=== PATIENT | female | born 2000 | race Caucasian/White ===

== ENCOUNTER 2022-05-21 07:00 | Inpatient (IN) | payer SELFPAY, OTHER ==
[2022-05-21] VITALS (35 sets, daily range): BP systolic 125–156; BP diastolic 76–100; PULSE 79–122; RESP 16–18; TEMP 36.3–37.1; O2SAT 84–100; BMI 30.5
[2022-05-21] MEDS: Lactated Ringers 1,000 ML 200 ML IV ×3 (08:00→14:32)
--- NOTE | 2022-05-21 08:10 | HP.PCM.OB_ITS ---
HPI - General General Date of Admission: 05/21/22 HPI Narrative JENNI PETERS, is a 21 F who presents at 40+4 based on LMP from [facility] following arrest of dilation x28 hours prior to admission. no ultrasounds in . did have mild elevated BPs during visits, per automated weaver no proteinuria with negative CMP. started paulino on saturday, has been 6cm since saturday SROM around midnight with clear fluid. Maternal Data Information Final KRYSTAL: 05/17/22 Final KRYSTAL Source: LMP PFSH PFSH Allergy/AdvReac Type Severity Reaction Status Date / Time Penicillins Allergy Severe hives, Verified 05/21/22 08:49 swelling Social History Smoking Status: Never smoker History Elective abortions Hx Para 0 Spontaneous abortions Hx # Term Pregnancies Ectopic pregnancies Hx # Pregnancies Multiple births # of living children NST FHR Rate Baby A Baseline: 125 Variability:: Moderate Accelerations:: 15 x 15 Decelerations:: None NST Reactive:: Yes FHR Category:: Category I Uterine Activity:: q2-3 minutes, mod to palp ROS Cardiovascular Cardiovascular: Denies abdominal pain, chest pain, diaphoresis or dyspnea Respiratory/Chest Respiratory/Chest: Denies change in mental status, chest congestion, chest tightness, cough, shortness of breath at rest, shortness of breath with exertion, breast mass, breast pain, breast skin changes, breast swelling, change in breast shape or nipple discharge Genitourinary Genitourinary: Reports change in urinary stream Musculoskeletal Musculoskeletal: Reports none Integumentary Integumentary: Reports none Neurologic Neurologic: Reports none Psychiatric Psychiatric: Reports none Endocrine Endocrinology: Reports none Hematologic/Lymphatic Hematologic/Lymphatic: Reports none Allergic/Immunologic Allergic/Immunologic: Reports none Vital Signs Vital Signs Vital Signs: 05/21/22 07:38 05/21/22 07:38 05/21/22 07:37 Temperature 97.8 F Temperature Source Pulse Rate 111 H Blood Pressure 141/98 H BP Systolic 141 BP Diastolic 98 Pulse Ox 05/21/22 08:47 05/21/22 08:47 05/21/22 08:46 Temperature Temperature Source Pulse Rate 102 H Blood Pressure 156/92 H BP Systolic 156 BP Diastolic 92 Pulse Ox 98 05/21/22 08:51 05/21/22 08:51 05/21/22 08:56 Temperature Temperature Source Pulse Rate 96 112 H Blood Pressure BP Systolic BP Diastolic Pulse Ox 98 05/21/22 08:56 05/21/22 09:01 05/21/22 09:01 Temperature Temperature Source Pulse Rate 106 H Blood Pressure 126/77 H BP Systolic 126 BP Diastolic 77 Pulse Ox 99 05/21/22 09:01 05/21/22 09:06 05/21/22 09:06 Temperature Temperature Source Pulse Rate 92 Blood Pressure BP Systolic BP Diastolic Pulse Ox 97 97 05/21/22 09:11 05/21/22 09:11 05/21/22 09:16 Temperature Temperature Source Pulse Rate 94 79 Blood Pressure BP Systolic BP Diastolic Pulse Ox 98 05/21/22 09:16 05/21/22 09:09 05/21/22 09:09 Temperature 97.3 F L Temperature Source Temporal Pulse Rate Blood Pressure BP Systolic BP Diastolic Pulse Ox 97 05/21/22 09:48 05/21/22 09:48 05/21/22 10:34 Temperature Temperature Source Pulse Rate 81 Blood Pressure 128/76 H 125/78 H BP Systolic 128 125 BP Diastolic 76 78 Pulse Ox 05/21/22 10:34 Temperature Temperature Source Pulse Rate 79 Blood Pressure BP Systolic BP Diastolic Pulse Ox Weight Weight: 172 lb 6 oz Body Mass Index (BMI) 30.5 Physical Exam Const alert, oriented x3 and no apparent distress General Appearance: cooperative, comfortable and well kempt Orientation / Consciousness: awake and oriented to person Exam Limitations: no limitations HEENT normocephalic Neck full ROM Chest inspection of chest normal Resp normal respiratory effort, normal air movement and no retractions Effort and Inspection: able to speak in complete sentences and symmetric chest movement Cardio regular rate Peripheral Pulses: pulses 2+ throughout GI normal to inspection, nondistended, normoactive bowel sounds Inspection: gravid no CVA tenderness and appearance of the vagina normal External Female Exam: normal appearance of the urethra; Negative for external lesion OB / External & Speculum: external exam normal Manual OB Exam: estimated gestational size appropriate and presentation cephalic Uterus Palpation: Negative for uterus tender Extremity normal to inspection Skin no rashes or lesions noted Neuro deep tendon reflexes 2+ bilaterally and gait normal Motor Exam: strength 5/5 throughout and clonus absent Psych Activity / Motor Behavior: appropriate eye contact Speech: normal speech Labs Labs Labs: Blood Type A POSITIVE Antibody Screen NEGATIVE Hct 36.3 % (37-47) L Hgb 12.6 g/dL (12.0-15.0) Syphilis Total Ab Non-reactive Rubella IgG Antibody Non-Reactive (Nonreactive) Hep Bs Antigen Non-Reactive (Nonreactive) HIV 1&2 Antibody Non-Reactive (Nonreactive) Group B Strep DNA POSITIVE (Negative) H Assessment & Plan (1) Labor abnormality, antepartum: COMMENT: SROMx6 hours arrest of dilation x28 hours plan epidural and pitocin augmentation PLAN: admission to routine orders pitocin per protocol epidural for comfort Dr. Arauz updated on POC, plan for internal monitors following epidural placement. agrees with co-management midwifery care for limited care
[2022-05-21] MEDS: LACTATED RINGERS 500 ML 999 ML IV (08:15)
[2022-05-21 08:21] LABS: Absolute Lymphocyte Count 0.83 X10^3/uL (0.83-4.51); Absolute Neutrophil Count 19.1 X10^3/uL (2.0-7.7); Basophil# 0.02 X10^3/uL; Basophil% 0.1 % (0-1); Hematocrit 36.3 % (37-47); Hemoglobin 12.6 g/dL (12.0-15.0); Lymphocyte # 0.83 X10^3/ul (0.83-4.51); Mean Corp Hgb Conc 34.7 g/dL (32-36); Mean Corpuscular Hgb 31.7 pg (27.0-32.0); Mean Corpuscular Volume 91.2 fL (81-99); Mean Platelet Vol. 10.1 fl (6.2-12.0); Monocyte# 0.62 X10^3/uL; NRBC Flagged by Analyzer 0 % (0-5); Neutrophil # 19.12 X10^3/uL (2.7-7.7); Neutrophil % 92.1 % (47-70); Platelet Count 258 K/mm3 (150-450); RBC Distribution Width CV 16.2 % (11.6-14.6); RBC Distribution Width SD 53.7 fl (35.1-43.9); Red Blood Count 3.98 M/mm3 (4.2-5.4); White Blood Count 20.8 K/mm3 (4.4-11.0)
[2022-05-21] MEDS: fentaNYL-bupivacaine (epidural) 100 ML BAG EPIDURAL ×2 (08:57→13:35)
[2022-05-21 09:01] LABS: Rubella IgG Non-Reactive (Nonreactive); Syphilis Antibodies Non-reactive
[2022-05-21 09:22] LABS: HIV - WCH Non-Reactive (Nonreactive); Hepatitis B Surface Antigen Non-Reactive (Nonreactive); Hepatitis C Antibody Non-Reactive (Nonreactive)
[2022-05-21] MEDS: Oxytocin 15 Units/NS 250ml 15 UNITS/250 ML IV.SOLN 2 UNITS IV (09:47)
[2022-05-21 09:54] LABS: Group B Strep DNA By PCR POSITIVE (Negative); Probe Check PASS
--- NOTE | 2022-05-21 11:00 | PN.OBGYN_ITS ---
Subjective Subjective comfortable with epidural Objective Data Objective Data Vital Signs: Vital Signs Temp Pulse BP Pulse Ox 97.3 F L 79 125/78 H 97 05/21/22 09:09 05/21/22 10:34 05/21/22 10:34 05/21/22 09:16 Weight: 172 lb 6 oz Body Mass Index (BMI) 30.5 Intake & Output: Intake and Output for Last 24 Hours 05/19/22 05/20/22 05/21/22 23:59 23:59 23:59 Intake Total 1098.27 / 1098.27 Output Total 1000 / 1000 Balance 98.27 / 98.27 Lab / Micro Data Result Diagrams: 05/21/22 08:00 Labs: Laboratory Results - last 24 hr 05/21/22 07:50: Group B Strep DNA POSITIVE H, Specimen Comment Not Reportable 05/21/22 08:00: WBC 20.8 H, RBC 3.98 L, Hgb 12.6, Hct 36.3 L, MCV 91.2, MCH 31.7, MCHC 34.7, RDW Std Deviation 53.7 H, RDW Coeff of Howard 16.2 H, Plt Count 258, MPV 10.1, Immature Gran % (Auto) 0.800, Neut % (Auto) 92.1 H, Lymph % (Auto) 4.0 L, [place] % (Auto) 3.0, Eos % (Auto) 0.0, Baso % (Auto) 0.1, Absolute Neuts (auto) 19.1 H, Absolute Lymphs (auto) 0.83, Nucleated RBC % 0 05/21/22 08:00: Blood Type A POSITIVE, Antibody Screen NEGATIVE 05/21/22 08:00: Syphilis Total Ab Non-reactive, Rubella IgG Antibody Non- Reactive 05/21/22 08:00: Hep Bs Antigen Non-Reactive, Hepatitis C Antibody Non-Reactive, HIV 1&2 Antibody Non-Reactive NST FHR Rate Baby A Baseline: 120 Variability:: Moderate Accelerations:: 15 x 15 Decelerations:: None NST Reactive:: Yes FHR Category:: Category I Uterine Activity:: q2-3 Assessment & Plan (1) Labor abnormality, antepartum: COMMENT: SROMx6 hours arrest of dilation x28 hours plan epidural and pitocin augmentation PLAN: pt fully dilated on pitocin 4mu with rectal pressure start second stage anticipate maternal and status reassuring
[2022-05-21] MEDS: Cefazolin 2 GM in 0.9% Normal Saline 100 ML IV (11:44)
[2022-05-21] MEDS: Mag Hydrox/Al Hydrox/Simeth 30 ML UDC PO (15:14)
[2022-05-21] MEDS: Oxytocin 15 Units/NS 250ml 15 UNITS/250 ML IV.SOLN 83 UNITS IV (16:16)
[2022-05-21] MEDS: Oxytocin 10 UNITS/ML Vial IM (16:20)
--- NOTE | 2022-05-21 16:41 | OP.PCM_ITS ---
Assessment & Plan (1) Labor abnormality, antepartum: COMMENT: SROMx6 hours arrest of dilation x28 hours plan epidural and pitocin augmentation (2) Arrest of descent, delivered, current hospitalization: (3) Vacuum-assisted vaginal delivery: COMMENT: 4 1/2 hr pushing maternal exhaustion, SM [facility] tra herberCherelle Hernandez Vaginal Delivery Operative Information Date of Procedure: 05/21/22 Pre-Operative Diagnosis: IAL arrest of descent after 4-1/2 hours of pushing maternal exhaustion Post-Operative Diagnosis: same Type of Anesthesia: Epidural Special Medications: none Estimated Blood Loss: 400 Fluids Replaced: crystalloid Findings Description of Procedure: Patient began pushing after 4 and half hours of pushing the head was in ROP position and still at the +3 station. Patient was exhausted and patient was consented for vacuum assistance delivery. Kiwi vacuum was applied and pressure applied into the green zone applied for the duration of 2 contractions total of 4 minutes with 2 pulls no pop offs. The head spontaneously rotated at the end and delivered MIGUEL. Anterior and posterior shoulders delivered without complication infant was noted to have a very short cord and was held by the perineum and then placed on the very lower part of the maternal abdomen. Delayed cord clamping was employed for approximately 60 seconds. Cord was clamped and cut and gentle traction was applied to the cord and the placenta delivered spontaneously immediately following it was noted to be intact with three-vessel cord. The perineum and vagina were inspected and noted to have a small laceration on the right vaginal sidewall and then a second-degree perineal laceration. Both were repaired in the usual fashion with 3-0 Vicryl Rapide and with an interrupted [id number] stitch in the right pelvic sidewall to obtai n hemostasis.. EBL was 400. Some mild atony was encountered and therefore bimanual massage Pitocin and Methergine was given. Patient and infant tolerated delivery well. Presentation: NOHELIA Amniotic Fluid Description: Clear Placental Delivery Description: Spontaneous Placenta Disposition: [facility] Cord Vessel Description: 3 Vessels Cord Entanglement: None Delayed Cord Clamping: Yes Post Vaginal Delivery Medications Given After Delivery: IV Pitocin Episiotomy Description: None Complication Complications: None Procedures Urinary/Genital [id number]: [id number] Vaginal Delivery+ Care([facility])
--- NOTE | 2022-05-21 16:48 | DCINST_ITS ---
Discharge Instructions Diet Discharge Diet: No restrictions Activity Discharge Activity: Return to Normal Activity, May Drive, May Shower and May Take a Tub Bath (in 4 weeks) May resume sexual activity in: 6-8 weeks (after seen by OB provider) Weight Bearing Status: Full weight bearing Lifting Restrictions: none Dressing / Incision Call your doctor if you observe: Fever of 101 or Higher, Inability to urinate, Using more than 1 pad per hour (for more than 2 hours in a row or more), Shortness of breath, Dizziness, Chest pain and - (headache not controlled with tylenol, change in vision) Follow Up Care When: in 6 weeks for visit, call the office to make the appointment. If you had elevated blood pressures call the office to be seen within 1 week. Test Results: Test results from this visit will be discussed in further detail at your follow- up appointment, if applicable. Discharge Plan Admission Admit Date/Time: 05/21/22 07:00 Attending Provider: Crystal Arauz Primary Care Provider: Care Physician,Asuncion Primary Discharge Orders/Prescriptions Prescriptions: No Action Prenatabs FA 1 tab PO.IVFORM DAILY Referrals / Follow Up: Care Physician,No Primary [Primary Care Provider] - Disposition Disposition (needs filled in before D/C Order can be placed): Home, Self Care
[2022-05-21] MEDS: Methylergonovine 0.2 MG/ML Ampul IM (17:09)
--- NOTE | 2022-05-21 21:49 | NURSING ---
RN notes pt up and moving around prior to BP at 2108. RN let pt rest in bed and retook bp. Pt states she has white coat syndrome and that she takes her blood pressure at home when her batch weigher is not around.
--- NOTE | 2022-05-21 21:54 | NURSING ---
Pt declined MMR vaccine and VIS given.
--- NOTE | 2022-05-21 22:06 | NURSING ---
RN notes pt fundus left of midline, +1 for initial shift assessment. Pt states she feels like she has to pee but can't. RN suggested getting in the shower. PT showered and voided 125 ml in hat. RN reassessed fundus and notes it to be firm, at Umbilicus and midline. Pt encouraged to drink more fluids and to try to pee again after next feed. RN will continue to monitor. RN discussed possibility of a straight cath if voiding remains inadequate.
[2022-05-22] MEDS: Acetaminophen 500 MG Tablet 1000 MG PO (00:11)
[2022-05-22 03:20] VITALS: BP 114/77; PULSE 81; RESP 14; TEMP 36.4
--- NOTE | 2022-05-22 07:55 | PN.OBGYN_ITS ---
Subjective Subjective Patient doing well without complaints. Tolerating PO. Ambulating and voiding without difficulty. Feeding well. Denies chest pain, shortness of breath, calf pain/swelling, fevers, chills, lightheadedness. Objective Data Objective Data Vital Signs: Vital Signs Temp Pulse Resp BP Pulse Ox O2 Del Method 97.5 F L 81 14 114/77 98 Room Air 05/22/22 03:20 05/22/22 03:20 05/22/22 03:20 05/22/22 03:20 05/21/22 21:08 05/22/22 03:20 Oxygen Delivery Method Room Air Weight: 172 lb 6 oz Body Mass Index (BMI) 30.5 Intake & Output: Intake and Output for Last 24 Hours 05/20/22 05/21/22 05/22/22 23:59 23:59 23:59 Intake Total 1941.00 / 1941.00 Output Total 2425 / 2425 700 / 700 Balance -484.00 / -484.00 -700 / -700 Lab / Micro Data Result Diagrams: 05/21/22 08:00 Labs: Laboratory Results - last 24 hr 05/21/22 07:50: Group B Strep DNA POSITIVE H, Specimen Comment Not Reportable 05/21/22 08:00: WBC 20.8 H, RBC 3.98 L, Hgb 12.6, Hct 36.3 L, MCV 91.2, MCH 31.7, MCHC 34.7, RDW Std Deviation 53.7 H, RDW Coeff of Howard 16.2 H, Plt Count 258, MPV 10.1, Immature Gran % (Auto) 0.800, Neut % (Auto) 92.1 H, Lymph % (Auto) 4.0 L, [place] % (Auto) 3.0, Eos % (Auto) 0.0, Baso % (Auto) 0.1, Absolute Neuts (auto) 19.1 H, Absolute Lymphs (auto) 0.83, Nucleated RBC % 0 05/21/22 08:00: Blood Type A POSITIVE, Antibody Screen NEGATIVE 05/21/22 08:00: Syphilis Total Ab Non-reactive, Rubella IgG Antibody Non- Reactive 05/21/22 08:00: Hep Bs Antigen Non-Reactive, Hepatitis C Antibody Non-Reactive, HIV 1&2 Antibody Non-Reactive Physical Exam Const alert and oriented x3 HEENT normocephalic Eyes PERRL Neck full ROM Resp normal respiratory effort GI soft to palpation GI Narrative: FF below U Assessment & Plan (1) Vacuum-assisted vaginal delivery: COMMENT: 4 1/2 hr pushing maternal exhaustion, SM 40 birthing center transfer. haider Hernandez PLAN: Plan s/p PPD # 1 1. routine post delivery care 2. breast feeding- support given 3. rh positive 4. rubella immune
[2022-05-22 08:27] VITALS: BP 119/84; PULSE 89; RESP 16; TEMP 36.6
[2022-05-22 12:23] VITALS: BP 127/78; PULSE 79; RESP 18; TEMP 36.8
== END 2022-05-22 17:20 | disposition home or self-care (01) | DRG 807 ==
PROVIDERS: Registered Nurse; Admitting Provider Obstetrics & Gynecology; Visit Provider Obstetrics & Gynecology
DX: O62.1 Secondary uterine inertia (principal); Z37.0 Single live birth; O48.0 Post-term pregnancy; O70.1 Second degree perineal laceration during delivery; Z3A.40 40 weeks gestation of pregnancy
CPT/HCPCS: 59025; 59050; 85025; 86703; 86762; 86780; 86803; 86850; 86900; 86901; 87340; 87653; 99221; J7120; G0378